=== PATIENT | male | born 1980 | race Caucasian/White ===

== ENCOUNTER 2021-01-27 06:25 | Day surgery (SDC) | payer BC ==
[~2021-01-27 06:25] MED LIST: EPIN0.3P IM; MULTI VITAMIN1 EACH PO; OMEGA 3 1,0001 EACH PO; VITAMIN C250 M1 PO
[2021-01-27] MEDS ORDERED: VITAMIN D-40010 MCG PO (06:41)
--- NOTE | 2021-01-27 07:55 | NUR ---
01/27/21 0755 JOSE,RANA - 0745-ARRIVED IN PACU. PATIENT AROUSABLE TO TACTILE AND VERBAL STIMULI, OPENS EYES. ON 2L O2 NC, BREATHING UNLABORED. DENIES PAIN OR NAUSEA. PATIENT VERY DROWSY, DOSES BACK TO SLEEP, SNORING. IVF INFUSING.
--- NOTE | 2021-01-27 12:36 | OR ---
[facility] [address], [place] [address] Signed DATE OF OPERATION: 01/27/2021 SURGEON: Becky Ponce MD PREOPERATIVE DIAGNOSES: 1. Left upper quadrant abdominal pain. 2. Alcohol use. 3. Snuff use. 4. Nicotine patches. POSTOPERATIVE DIAGNOSES: 1. Moderate diffuse gastritis. 2. Small hiatal hernia. PROCEDURE: EGD with CLOtest and biopsies of the antrum. ESTIMATED BLOOD LOSS: None. 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 He was asked to see me for an upper endoscopy. He says he has left upper quadrant abdominal pain intermittently over the last several years. He generally does not require ibuprofen or Aleve. He tried some omeprazole and did not feel like it really helped. He said he was drinking a little more than usual because of pandemic. Around 4 to 6 beers a day. He also uses snuff on a daily basis. He also uses nicotine patches. He said he has had no trauma. He thinks it is more to the medial side of the ribcage near the xiphoid process. We know his bilirubin was a little up at 1.3, but the rest of liver function tests were fine. Mean cell volume is good at 87. He had an ultrasound of the left upper quadrant and everything was okay including the spleen. In the office, I gave Becky a pamphlet on upper endoscopy and we looked at that together in detail. He understands the nature of the test along with the risks including, but not limited to gas bloating, crampy abdominal pain, bleeding, perforation requiring surgery, and missed diagnosis. He also understands the need for IV conscious sedation. He had expressed understanding and wished to proceed. PROCEDURE NOTE: Becky was taken into our endoscopy suite and placed in a supine semi-recumbent position. He was given a total of 9 mg of Versed and 125 mcg of fentanyl to cover the Electronically Signed By: BECKY PONCE MD 01/27/21 1236 PATIENT NAME: BECKY CHEN OPERATIVE REPORT DATE OF : 80 REPORT #: [id number] PHYSICIAN: BECKY PONCE MD PCP: RAVEN PEACOCK PA-C REPORT IS CONFIDENTIAL AND NOT TO BE RELEASED WITHOUT AUTHORIZATION [facility] [address], [place] [address] Signed case. Even then he was moving about a bit and he did have some saliva down on the vocal cords, he was coughing and made the exam a little difficult. In that regard, we could not measure out his small hiatal hernia. Also, there was saliva around the GE junction as well. We did use lidocaine spray for the case along with a bite block. The adult gastroscope had been introduced and advanced out into the third portion of the duodenum. The duodenum and pyloric channel were unremarkable. However, the stomach shows mild diffuse erythematous changes. We took a biopsy of the antrum for CLOtest as well as pathologic review. There were no ulcerations. Upon retroflexion of scope despite the saliva, we could see he does have a small hiatal hernia. The scope was withdrawn up through the area of the GE junction which was compliant without stricture. We did not see any Murillo's esophagus. No distal esophagitis. Z-line is relatively intact. The middle and upper esophagus were unremarkable. After this, the gas was suctioned out and the gastroscope removed. Becky tolerated the procedure quite well. RECOMMENDATIONS: I will see Becky back in my office in 7 to 14 days to review his results. He might consider cutting back on alcohol and snuff and I think that will help his stomach quite a bit. Becky Ponce MD ALB/MODL /[id number] cc: MD Raven Quarles Copies: BECKY PONCE MD ~ Electronically Signed By: BECKY PONCE MD 01/27/21 1236 PATIENT NAME: BECKY CHEN OPERATIVE REPORT DATE OF : 80 REPORT #: [id number] PHYSICIAN: BECKY PONCE MD PCP: RAVEN PEACOCK PA-C REPORT IS CONFIDENTIAL AND NOT TO BE RELEASED WITHOUT AUTHORIZATION
--- NOTE | 2021-01-31 16:55 | PATH ---
[facility] [address] [facility] [place] [place] [address] Signed THIS IS AN ADDENDUM REPORT SPECIMEN(S): A ANTRUM/PYLORUS SPECIMEN SOURCE: A. ANTRUM/PYLORUS CLINICAL HISTORY: Esophagogastroduodenoscopy with biopsy. LUQ pain. Postop: Gastritis. MICROSCOPIC DESCRIPTION: Histologic sections of all submitted blocks are examined by light microscopy. These findings, together with the gross examination, support the pathologic diagnosis. FINAL PATHOLOGIC DIAGNOSIS: Stomach, antrum/pylorus, biopsy: - Antral mucosa with chronic, inactive gastritis. - Negative for Helicobacter organisms on HE stain, see Comment. - Negative for dysplasia or malignancy. COMMENT: Definitive Helicobacter organisms are not seen on HE stain. An H. pylori immunohistochemical stain is pending and will be reported in an addendum. NAL:cml:C2NR GROSS DESCRIPTION: The specimen, labeled "Gaetanovernonjorjefield Becky, #1," and designated on the requisition "antrum/pylorus biopsy," is received in formalin and consists of one velasco soft tissue fragment that measures 0.7 cm in greatest dimension. The specimen is entirely submitted in cassette (A1). FB (under the direct supervision of a pathologist) The Gross Description was prepared using a voice recognition system. The report was reviewed for accuracy; however, sound-alike word errors, addition and/or deletions may occur. If there is any question about this report, please contact Client Services. PERFORMING LABORATORY: The technical component was performed by [facility], [address] [place] [id number] (Chlorine Cell Tender: Collette Stanton MD; CLIA# [id number]). [facility], [address] [place] [address] [facility]. 107, PATIENT NAME: BECKY CHEN PATHOLOGY DATE OF : 80 REPORT #: [id number] PHYSICIAN: RIGOBERTO PATHOLOGY PCP: RAVEN PEACOCK PA-C REPORT IS CONFIDENTIAL AND NOT TO BE RELEASED WITHOUT AUTHORIZATION [facility] [address] [facility] [place] [address] Signed Jozef Quinones [id number] (CLIA# [id number]). ADDITIONAL NOTES: Immunohistochemical and/or in situ hybridization studies were performed on this case with the appropriate positive controls that react as expected. This test was developed and its performance characteristics determined by [facility]. It has not been cleared or approved by the U.S. Food and Drug Administration. The FDA has determined that such clearance or approval is not necessary. This test is used for clinical purposes. It should not be regarded as investigational or for research. [facility] is certified under the Clinical Laboratory Improvement Amendments of 1988 (CLIA) as qualified to perform high complexity clinical laboratory testing. This assay has not been validated for specimens that have been decalcified. The technical component was performed by [facility], [address] [place] [id number] (Chlorine Cell Tender: Collette Stanton MD; CLIA# [id number]). [facility], [address] [facility] [place] [address] [address] (CLIA# [id number]). REASON FOR ADDENDUM: To add results of additional testing. ADDENDUM PATHOLOGIC DIAGNOSIS: An H. pylori immunohistochemical stain (with appropriately staining controls) is positive for Helicobacter organisms. The morphology of the organisms is most compatible with H. heilmannii. NAL:cml Diagnostician: Bessy Varghese MD Pathologist Electronically Signed 01/31/2021 Copies: ~ PATIENT NAME: BECKY CHEN PATHOLOGY DATE OF : 80 REPORT #: [id number] PHYSICIAN: RIGOBERTO PATHOLOGY PCP: RAVEN PEACOCK PA-C REPORT IS CONFIDENTIAL AND NOT TO BE RELEASED WITHOUT AUTHORIZATION
== END 2021-01-27 08:30 | disposition home or self-care (01) ==
LOC: OPS 06:25 → DS 06:25 → OPS 06:45
PROVIDERS: ATTEND Colon & Rectal Surgery
PROC: 0DB78ZX Excision of Stomach, Pylorus, Via Natural or Artificial Opening Endoscopic, Diagnostic (ICD-10-PCS; principal; 2021-01-27 06:45)
DX: K29.60 Other gastritis without bleeding (principal); K44.9 Diaphragmatic hernia without obstruction or gangrene; Z72.89 Other problems related to lifestyle
CPT/HCPCS: 86677; G0500; J2250; J3010; J7121